=== PATIENT | female | born 1960 | race Caucasian/White ===

== ENCOUNTER → 2016-10-10 | Outpatient (CLI) | payer OTHER | LOC: EXRD 09:27 | DX: I73.9 Peripheral vascular disease, unspecified (principal); M25.551 Pain in right hip; M25.552 Pain in left hip; E78.5 Hyperlipidemia, unspecified; F17.200 Nicotine dependence, unspecified, uncomplicated | CPT/HCPCS: 73522 ==

== ENCOUNTER → 2016-10-17 | Outpatient (CLI) | payer OTHER | LOC: KOH-I 07:51 | DX: E78.5 Hyperlipidemia, unspecified (principal); I73.9 Peripheral vascular disease, unspecified; F17.200 Nicotine dependence, unspecified, uncomplicated; I77.9 Disorder of arteries and arterioles, unspecified | CPT/HCPCS: 93925 ==